=== PATIENT | male | born 1975 | race Two or more races ===

== ENCOUNTER 2020-09-30 12:07 | Outpatient (CLI) | payer OTHER | END 2020-09-30 12:22 | disposition home or self-care (01) | LOC: LAB 12:07 | DX: Z03.818 Encounter for observation for suspected exposure to other biological agents ruled out (principal); Z20.828 Contact with and (suspected) exposure to other viral communicable diseases ==

== ENCOUNTER 2020-09-30 15:41 | Outpatient (CLI) | payer OTHER | END 2020-09-30 16:32 | disposition home or self-care (01) | LOC: LAB 15:41 | DX: Z03.818 Encounter for observation for suspected exposure to other biological agents ruled out (principal) ==